=== PATIENT | female | born 1950 | race African-American/Black ===

== ENCOUNTER 2023-03-05 06:11 | Inpatient (IN) | payer MEDICARE, MEDICAID ==
[~2023-03-05] VITALS: Ht 157.5 cm; Wt 54.0 kg
[~2023-03-05 06:11] MED LIST: ASPI-986 PO
[2023-03-05] MEDS ORDERED: PROPOFOL 200MG/20ML VIAL IV ONE ×2 (08:45→15:00)
[2023-03-05] MEDS ORDERED: SODIUM CHLORIDE 0.9% 1,000 ML IV ONE (08:45)
[2023-03-05 09:02] LABS: BASOPHILS % 0.8 % (0.0-2.0); EOSINOPHILS % 5.9 % (0.0-5.0); HEMATOCRIT. 32.2 % (36.0-48.0); HEMOGLOBIN. 10.8 g/dL (12.0-16.0); LYMPHOCYTES % 12.2 % (20.0-50.0); MEAN CORPUSCULAR HEMOGLOBIN 30.9 pg (28.0-32.0); MEAN CORPUSCULAR VOLUME 92.3 fL (81.0-99.0); MONOCYTES % 5.4 % (2.0-8.0); NEUTROPHILS % 75.7 % (40.0-76.0); RED BLOOD CELL COUNT 3.49 mill/uL (4.2-5.4); RED CELL DISTRIBUTION WIDTH 15.9 % (11.6-14.6)
[2023-03-05 09:07] LABS: CHLORIDE 112 mEq/L (98-107)
[2023-03-05 09:10] LABS: PROTHROMBIN TIME 10.9 sec (9.6-11.0)
[2023-03-05 09:59] LABS: PLATELET 326 x1000/uL (130-400)
[2023-03-05] MEDS ORDERED: MORPHINE SULFATE 4 MG/ML CPJ (NOT FOR IM USE) IV ONE (10:15)
[2023-03-05] MEDS ORDERED: GUAIFENESIN 200MG/10ML SUGAR FREE UDC PO PRN (14:15)
[2023-03-05] MEDS ORDERED: SENNOSIDES 8.6MG TABLET PO PRN (14:15)
[2023-03-05] MEDS ORDERED: CLONIDINE 0.1MG TABLET PO PRN (14:15)
[2023-03-05] MEDS ORDERED: MAGNESIUM HYDROXIDE 400MG/5ML 30ML UDC PO PRN (14:15)
[2023-03-05] MEDS ORDERED: IPRATROPIUM/ALBUTEROL 0.5-3(2.5)MG/3ML NEB HHN PRN (14:15)
[2023-03-05] MEDS ORDERED: ACETAMINOPHEN 325MG TABLET PO PRN (14:15)
[2023-03-05] MEDS ORDERED: ZOLPIDEM TARTRATE 5MG TABLET PO PRN (14:15)
[2023-03-05] MEDS ORDERED: MAGNESIUM/ALUMINUM HYDROXIDE/SIMETHICONE 30ML UDC PO PRN (14:15)
[2023-03-05] MEDS ORDERED: ONDANSETRON HCL 4MG/2ML INJ IV PRN (14:15)
[2023-03-05] MEDS ORDERED: DIPHENHYDRAMINE 50MG/ML VIAL IV PRN (14:15)
[2023-03-05] MEDS ORDERED: ATOR20TA PO (14:38)
[2023-03-05] MEDS ORDERED: AMOX-494 MT (14:40)
[2023-03-05] MEDS ORDERED: AMLO5TAB88 PO (14:40)
[2023-03-05 14:45] VITALS: BP 147/63
[2023-03-05 15:00] VITALS: BP 132/72
[2023-03-05] MEDS ORDERED: LIDOCAINE HCL 1% 10 MG/ML 10ML VIAL ONE (15:00)
[2023-03-05] MEDS: DOCUSATE SODIUM 100MG CAPSULE PO SCH (17:00)
[2023-03-05] MEDS: ENOXAPARIN 40MG/0.4ML SYR SUBCUT SCH (17:58)
[2023-03-05] MEDS ORDERED: NALOXONE HCL 0.4MG/ML VIAL IV PRN (18:30)
[2023-03-05 20:00] VITALS: BP 137/79
[2023-03-05] MEDS: OMEPRAZOLE 20MG CAPSULE EXTENDED RELEASE PO SCH (21:00)
[2023-03-05] MEDS: MORPHINE SULFATE 4 MG/ML CPJ (NOT FOR IM USE) IV PRN (21:09)
[2023-03-05] MEDS: SODIUM CHLORIDE 0.9% INJ 3ML FLUSH IVF SCH (22:00)
[2023-03-06] VITALS: BP 124/75
[2023-03-06 04:00] VITALS: BP 127/70
[2023-03-06] MEDS: SODIUM CHLORIDE 0.9% INJ 3ML FLUSH IVF SCH ×3 (05:45→21:01)
[2023-03-06] MEDS: MORPHINE SULFATE 4 MG/ML CPJ (NOT FOR IM USE) IV PRN ×3 (05:45→20:57)
[2023-03-06] MEDS: OMEPRAZOLE 20MG CAPSULE EXTENDED RELEASE PO SCH ×2 (06:18→20:26)
[2023-03-06 08:00] VITALS: BP 142/77
[2023-03-06] MEDS: DOCUSATE SODIUM 100MG CAPSULE PO SCH ×2 (09:00→17:07)
[2023-03-06 12:00] VITALS: BP 106/60
[2023-03-06] MEDS: HYDROCODONE/ACETAMINOPHEN 10/325MG TABLET PO PRN (15:32)
[2023-03-06 16:00] VITALS: BP 140/85
[2023-03-06] MEDS: ENOXAPARIN 40MG/0.4ML SYR SUBCUT SCH (18:08)
[2023-03-06 20:00] VITALS: BP 143/90
[2023-03-07] VITALS: BP 149/91
[2023-03-07] MEDS: HYDROCODONE/ACETAMINOPHEN 10/325MG TABLET PO PRN ×3 (06:14→21:11)
[2023-03-07] MEDS: SODIUM CHLORIDE 0.9% INJ 3ML FLUSH IVF SCH ×2 (06:15→21:49)
[2023-03-07] MEDS: OMEPRAZOLE 20MG CAPSULE EXTENDED RELEASE PO SCH ×2 (06:27→21:10)
[2023-03-07 08:00] VITALS: BP 125/81
[2023-03-07] MEDS: DOCUSATE SODIUM 100MG CAPSULE PO SCH ×2 (08:43→17:00)
[2023-03-07 12:00] VITALS: BP 115/69
[2023-03-07 16:00] VITALS: BP 117/78
[2023-03-07] MEDS: ENOXAPARIN 40MG/0.4ML SYR SUBCUT SCH (18:17)
[2023-03-07 20:00] VITALS: BP 117/74
[2023-03-08] MEDS: SODIUM CHLORIDE 0.9% INJ 3ML FLUSH IVF SCH ×2 (05:56→21:22)
[2023-03-08 08:00] VITALS: BP 125/87
[2023-03-08] MEDS: DOCUSATE SODIUM 100MG CAPSULE PO SCH (08:57)
[2023-03-08] MEDS: OMEPRAZOLE 20MG CAPSULE EXTENDED RELEASE PO SCH ×2 (08:57→21:23)
[2023-03-08] MEDS: ACETAMINOPHEN 325MG TABLET PO PRN (08:57)
[2023-03-08] MEDS: HYDROCODONE/ACETAMINOPHEN 10/325MG TABLET PO PRN ×2 (09:12→19:02)
[2023-03-08 12:00] VITALS: BP 122/87
[2023-03-08 16:00] VITALS: BP 123/75
[2023-03-08 20:00] VITALS: BP 117/72
[2023-03-09] VITALS: BP 115/74
[2023-03-09 04:00] VITALS: BP 122/72
[2023-03-09] MEDS: SODIUM CHLORIDE 0.9% INJ 3ML FLUSH IVF SCH ×3 (05:52→21:34)
[2023-03-09] MEDS: OMEPRAZOLE 20MG CAPSULE EXTENDED RELEASE PO SCH (07:20)
[2023-03-09 08:00] VITALS: BP 130/78
[2023-03-09] MEDS: DOCUSATE SODIUM 100MG CAPSULE PO SCH ×2 (09:00→17:00)
[2023-03-09 12:00] VITALS: BP 137/73
[2023-03-09] MEDS: HYDROCODONE/ACETAMINOPHEN 10/325MG TABLET PO PRN ×2 (14:33→21:30)
[2023-03-09 16:00] VITALS: BP 124/72
[2023-03-09] MEDS: ENOXAPARIN 40MG/0.4ML SYR SUBCUT SCH ×2 (18:00→18:10)
[2023-03-09 20:00] VITALS: BP 102/62
[2023-03-09] MEDS: FAMOTIDINE 20MG TABLET PO SCH (21:30)
[2023-03-10] VITALS: BP 113/77
[2023-03-10 04:00] VITALS: BP 130/74
[2023-03-10] MEDS: SODIUM CHLORIDE 0.9% INJ 3ML FLUSH IVF SCH ×3 (05:32→22:00)
[2023-03-10 08:00] VITALS: BP 136/73
[2023-03-10] MEDS: DOCUSATE SODIUM 100MG CAPSULE PO SCH ×2 (09:00→16:08)
[2023-03-10 12:00] VITALS: BP 121/78
[2023-03-10 16:00] VITALS: BP 129/84
[2023-03-10] MEDS: ACETAMINOPHEN 325MG TABLET PO PRN (17:06)
[2023-03-10] MEDS: ENOXAPARIN 40MG/0.4ML SYR SUBCUT SCH (17:07)
[2023-03-10 20:00] VITALS: BP 136/72
[2023-03-10] MEDS: FAMOTIDINE 20MG TABLET PO SCH (20:44)
[2023-03-10] MEDS ORDERED: NALOXONE HCL 0.4MG/ML VIAL IV PRN (20:45)
[2023-03-10] MEDS: HYDROCODONE/ACETAMINOPHEN 10/325MG TABLET PO PRN (20:45)
[2023-03-11 04:00] VITALS: BP 115/77
[2023-03-11] MEDS: SODIUM CHLORIDE 0.9% INJ 3ML FLUSH IVF SCH ×3 (06:00→22:38)
[2023-03-11] MEDS: HYDROCODONE/ACETAMINOPHEN 10/325MG TABLET PO PRN ×2 (06:28→22:39)
[2023-03-11 07:32] LABS: HEMATOCRIT 31.7 % (36.0-48.0); HEMOGLOBIN 10.5 g/dL (12.0-16.0); MEAN CORPUSCULAR HEMOGLOBIN 30.4 pg (28.0-32.0); MEAN CORPUSCULAR VOLUME 92.1 fL (81.0-99.0); PLATELET 260 x1000/uL (130-400); RED BLOOD CELL COUNT 3.44 mill/uL (4.2-5.4); RED CELL DISTRIBUTION WIDTH 15.2 % (11.6-14.6)
[2023-03-11 07:46] LABS: CHLORIDE 107 mEq/L (98-107)
[2023-03-11 08:00] VITALS: BP 112/77
[2023-03-11] MEDS: DOCUSATE SODIUM 100MG CAPSULE PO SCH ×2 (09:00→17:00)
[2023-03-11 12:00] VITALS: BP 124/67
[2023-03-11 16:00] VITALS: BP 118/71
[2023-03-11] MEDS: ENOXAPARIN 40MG/0.4ML SYR SUBCUT SCH (18:00)
[2023-03-11 20:00] VITALS: BP 113/77
[2023-03-11] MEDS: FAMOTIDINE 20MG TABLET PO SCH (21:00)
[2023-03-12] VITALS: BP 117/67
[2023-03-12] MEDS: HYDROCODONE/ACETAMINOPHEN 10/325MG TABLET PO PRN ×3 (01:01→20:47)
[2023-03-12 04:00] VITALS: BP 134/71
[2023-03-12 08:00] VITALS: BP 113/74
[2023-03-12] MEDS: DOCUSATE SODIUM 100MG CAPSULE PO SCH ×2 (09:00→17:00)
[2023-03-12 12:00] VITALS: BP 126/76
[2023-03-12 16:00] VITALS: BP 115/77
[2023-03-12] MEDS: ENOXAPARIN 40MG/0.4ML SYR SUBCUT SCH (18:00)
[2023-03-12 20:00] VITALS: BP 112/69
[2023-03-12] MEDS: FAMOTIDINE 20MG TABLET PO SCH (20:47)
[2023-03-13 04:00] VITALS: BP 108/72
[2023-03-13 08:00] VITALS: BP 113/65
[2023-03-13] MEDS: DOCUSATE SODIUM 100MG CAPSULE PO SCH ×2 (09:24→17:46)
[2023-03-13 11:51] VITALS: BP 119/64
[2023-03-13] MEDS: HYDROCODONE/ACETAMINOPHEN 10/325MG TABLET PO PRN ×2 (13:16→20:30)
[2023-03-13] MEDS: SODIUM CHLORIDE 0.9% INJ 3ML FLUSH IVF SCH (14:00)
[2023-03-13 16:00] VITALS: BP 115/70
[2023-03-13] MEDS: ENOXAPARIN 40MG/0.4ML SYR SUBCUT SCH (17:47)
[2023-03-13 20:00] VITALS: BP 109/67
[2023-03-13] MEDS: FAMOTIDINE 20MG TABLET PO SCH (20:25)
[2023-03-14 04:00] VITALS: BP 116/69
[2023-03-14 08:00] VITALS: BP 110/73
[2023-03-14] MEDS: DOCUSATE SODIUM 100MG CAPSULE PO SCH ×2 (09:15→17:31)
[2023-03-14 12:00] VITALS: BP 108/78
[2023-03-14] MEDS: HYDROCODONE/ACETAMINOPHEN 10/325MG TABLET PO PRN (14:31)
[2023-03-14 15:46] VITALS: BP 118/70
[2023-03-14] MEDS: ENOXAPARIN 40MG/0.4ML SYR SUBCUT SCH (17:31)
[2023-03-14 20:00] VITALS: BP 102/70
[2023-03-14] MEDS: SODIUM CHLORIDE 0.9% INJ 3ML FLUSH IVF SCH (20:31)
[2023-03-14] MEDS: ACETAMINOPHEN 325MG TABLET PO PRN (20:32)
[2023-03-14] MEDS: FAMOTIDINE 20MG TABLET PO SCH (20:32)
[2023-03-15] VITALS: BP 108/74
[2023-03-15 04:00] VITALS: BP 110/76
[2023-03-15] MEDS: SODIUM CHLORIDE 0.9% INJ 3ML FLUSH IVF SCH ×3 (06:00→21:24)
[2023-03-15 08:00] VITALS: BP 122/71
[2023-03-15] MEDS: DOCUSATE SODIUM 100MG CAPSULE PO SCH ×2 (08:36→17:00)
[2023-03-15 12:00] VITALS: BP 103/64
[2023-03-15 16:00] VITALS: BP 112/70
[2023-03-15] MEDS: ENOXAPARIN 40MG/0.4ML SYR SUBCUT SCH (18:00)
[2023-03-15] MEDS ORDERED: LACTULOSE 20G/30ML UDC PO PRN ×2 (18:00→21:00)
[2023-03-15] MEDS: HYDROCODONE/ACETAMINOPHEN 10/325MG TABLET PO PRN (18:44)
[2023-03-15 20:00] VITALS: BP 111/65
[2023-03-15] MEDS: FAMOTIDINE 20MG TABLET PO SCH (21:24)
[2023-03-15] MEDS: SENNOSIDES 8.6MG TABLET PO SCH (21:24)
[2023-03-16] VITALS: BP 104/65
[2023-03-16] MEDS: HYDROCODONE/ACETAMINOPHEN 10/325MG TABLET PO PRN (01:23)
[2023-03-16 04:00] VITALS: BP 114/80
[2023-03-16] MEDS: SODIUM CHLORIDE 0.9% INJ 3ML FLUSH IVF SCH ×2 (06:00→21:03)
[2023-03-16] MEDS: ACETAMINOPHEN 325MG TABLET PO PRN ×2 (06:58→17:22)
[2023-03-16 08:00] VITALS: BP 102/70
[2023-03-16] MEDS: DOCUSATE SODIUM 100MG CAPSULE PO SCH ×2 (09:09→17:22)
[2023-03-16 16:00] VITALS: BP 111/78
[2023-03-16] MEDS: ENOXAPARIN 40MG/0.4ML SYR SUBCUT SCH (18:00)
[2023-03-16 20:00] VITALS: BP 95/57
[2023-03-16] MEDS: SENNOSIDES 8.6MG TABLET PO SCH (21:04)
[2023-03-16] MEDS: FAMOTIDINE 20MG TABLET PO SCH (21:04)
[2023-03-17] VITALS: BP 105/58
[2023-03-17 04:00] VITALS: BP 102/57
[2023-03-17] MEDS: SODIUM CHLORIDE 0.9% INJ 3ML FLUSH IVF SCH (06:00)
[2023-03-17 08:00] VITALS: BP 94/66
[2023-03-17] MEDS: DOCUSATE SODIUM 100MG CAPSULE PO SCH ×2 (08:56→18:14)
[2023-03-17 12:00] VITALS: BP 98/55
[2023-03-17 16:00] VITALS: BP 87/51
[2023-03-17 18:04] VITALS: BP 119/98
[2023-03-17] MEDS: ACETAMINOPHEN 325MG TABLET PO PRN (18:15)
== END 2023-03-17 18:30 | disposition home or self-care (01) | DRG 349 ==
LOC: ER 06:20 → 6EST 09:37 → EDBEDREQ 09:41 → EDBEDREQTM 09:41 → 6EST 18:15
PROVIDERS: ADMIT Internal Medicine; ATTEND Internal Medicine
PROC: 0SWBXJZ Revision of Synthetic Substitute in Left Hip Joint, External Approach (ICD-10-PCS; principal; 2023-03-05)
DX: T84.021A Dislocation of internal left hip prosthesis, initial encounter (principal); E44.1 Mild protein-calorie malnutrition; I10 Essential (primary) hypertension; J44.9 Chronic obstructive pulmonary disease, unspecified; Z72.0 Tobacco use; Z90.49 Acquired absence of other specified parts of digestive tract; Y79.2 Prosthetic and other implants, materials and accessory orthopedic devices associated with adverse incidents; Y92.89 Other specified places as the place of occurrence of the external cause
CPT/HCPCS: 36415; 72170; 73501; 73502; 76000; 80048; 80053; 85025; 85027; 86850; 86900; 97116; 97162; 97166; 97530; 99291; J1650; J2270; J2704; J3490; J7030